=== PATIENT | male | born 1965 | race Caucasian/White ===

== ENCOUNTER 2025-03-13 04:27 | Emergency (ER) | payer OTHER, MEDICAID, SELFPAY ==
[2025-03-13 04:28] VITALS: BMI 28.5
[2025-03-13 04:47] VITALS: BP 108/71; PULSE 86; RESP 16; TEMP 36.9; O2SAT 98
--- NOTE | 2025-03-13 05:10 | PD.EDEAR ---
ED Ear RME/HPI General Chief complaint: Ear Stated complaint: LEFT EAR PAIN AND POPPING Time Seen by Provider: 03/13/25 04:56 Arrival date/time: 03/13/25 04:27 59M with history of afib, DM, and BPH presents to ED with several days of L ear pain and reduced hearing. Patient denies fevers/chills, URI symptoms, AMS, seizures, N/V, confusion, vision changes, jaw/dental pain, and fall/trauma. Limitations: no limitations Related Data Home Medications ?Medication ?Instructions ?Recorded ?Confirmed amitriptyline 50 mg tablet 50 mg PO QDAY 03/06/22 03/06/22 atorvastatin 80 mg tablet 80 mg PO QDAY 03/06/22 03/06/22 celecoxib 200 mg capsule 200 mg PO QDAY 03/06/22 03/06/22 esomeprazole magnesium 40 mg 40 mg PO QDAY 03/06/22 03/06/22 capsule,delayed release fluticasone fur. 100 mcg-umeclid See Rx Instructions .Route .COMPLEX 03/06/22 03/06/22 62.5 mcg-vilant 25 mcg inhalat.powder (Trelegy Ellipta) gabapentin 600 mg tablet 600 mg PO BID 03/06/22 03/06/22 lidocaine 5 % topical patch See Rx Instructions .Route .COMPLEX 03/06/22 03/06/22 metformin 500 mg tablet,extended 500 mg PO QDAY 03/06/22 03/06/22 release 24 hr methocarbamol 750 mg tablet 750 mg PO Q8H 03/06/22 03/06/22 oxycodone 10 mg tablet 10 mg PO TID 03/06/22 03/06/22 tamsulosin 0.4 mg capsule 0.4 mg PO QDAY 03/06/22 03/06/22 trazodone 150 mg tablet 150 mg PO QDAY 03/06/22 03/06/22 Previous Rx's ?Medication ?Instructions ?Recorded [id number]-[id number] 3.5 4 drp otic (ear) QID 10 days #10 mL 03/13/25 mg-10,000 unit/mL-1 % ear drops,susp Allergies Allergy/AdvReac Type Severity Reaction Status Date / Time ceftriaxone (From Rocephin) Allergy Intermediate Difficulty Verified 03/13/25 04:28 Breathing Penicillins Allergy Unknown Verified 03/13/25 04:28 Review of Systems Review of Systems Systems Reviewed: All systems reviewed, normal except as documented Constitutional Constitutional: Reports system reviewed and no additional complaints, except as documented, Denies fever(s) and Denies headache(s) ENT Ears, Nose, Mouth, and Throat: Reports as per HPI, Denies disequilibrium, Reports otalgia, Denies headache(s) and Reports hearing loss (reduced) Cardiovascular Cardiovascular: Reports system reviewed and no additional complaints, except as documented, Denies chest pain and Denies dyspnea Respiratory Respiratory: Reports system reviewed and no additional complaints, except as documented, Denies cough and Denies dyspnea Gastrointestinal Gastrointestinal: Reports system reviewed and no additional complaints, except as documented, Denies abdominal pain, Denies nausea and Denies vomiting Neurologic Neurologic: Reports system reviewed and no additional complaints, except as documented, Denies confusion, Denies disequilibrium and Denies headache(s) Psychiatric Psychiatric: Denies confusion Past Medical History Past Medical History CARDIAC: Positive Hypercholesterolemia and Hypertension; Negative Congestive Heart Failure RESPIRATORY: Positive Chronic Obstructive Pulmonary Disease (COPD) GENITOURINARY: Negative Renal Disease MUSCULOSKELETAL: Positive Degenerative Disk Disease ENDOCRINE: Negative Diabetes Mellitus Type 1 or Diabetes Mellitus Type 2 Surgical History SURGICAL: Positive Cardiac Surgery, Open Heart Surgery and Joint Replacement Social History SMOKING STATUS: Never smoker SUBSTANCE USE: does not use ED Exam General Limitations: Present no limitations General appearance: Present alert and in no apparent distress Head Head exam: Present atraumatic Eye Eye exam: Present normal appearance, PERRL and EOMI ENT ENT exam: Present mucous membranes moist Expanded ENT Exam External ear exam: Present external tenderness (L tragal) TM/Canal exam: Left TM: canal discharge and canal tenderness Neck Neck exam: Present normal inspection, full ROM and trachea midline Chest Chest inspection: Present normal inspection and symmetric chest wall rise Respiratory Respiratory exam: Present normal lung sounds bilaterally Cardiovascular Cardiovascular exam: Present regular rate, normal rhythm and normal heart sounds Abdominal Exam Abdominal exam: Present soft and normal bowel sounds Extremities Exam Extremities exam: Present normal inspection and full ROM Back Exam Back exam: Present normal inspection and full ROM Neurological Exam Neurological exam: Present alert, oriented X3 and CN II-XII intact Psychiatric Psychiatric exam: Present normal affect and normal mood Skin Skin exam: Present warm, dry, intact and normal color Course Quality Measures none Vital Signs Vital signs: Vital Signs Temperature 98.4 F 03/13/25 04:47 Pulse Rate 86 03/13/25 04:47 Respiratory Rate 16 03/13/25 04:47 Blood Pressure 108/71 03/13/25 04:47 Pulse Oximetry (%) 98 03/13/25 04:47 Oxygen Delivery Method Room Air 03/13/25 04:47 O2 at 98% on RA and WNLs Ear MDM Narrative MDM Narrative:: 59M with history of afib, DM, and BPH presents to ED with several days of L ear pain and reduced hearing. Patient denies fevers/chills, URI symptoms, AMS, seizures, N/V, confusion, vision changes, jaw/dental pain, and fall/trauma. Physical exam reveals L tragal tenderness, as well as canal discharge and tenderness. Patient is afebrile, calm, and alert. Speech normal. Gait normal. Likely OE. Patient data External records reviewed:: [facility] previous records Clinical information provided by:: patient Social determinants that could affect healthcare access:: none Patient has the following chronic illnesses:: afib, DM, and BPH How is presenting disease/condition affected by chronic disease/condition?: uneffected by Evaluation data The following diagnostics were reviewed and interpreted by me:: other (specify) (none) Lab and/or radiology exams considered but not ordered:: not ordered Interpretation Summary: n/a Medications / Prescriptions Medications or Prescriptions considered but not ordered:: not ordered Medication administrations:: n/a Consultations Consultation(s) initiated? (list below): No Diagnosis Ear Differential Diagnosis: otitis externa, otitis media, foreign body in ear, ruptured TM and cerumen impaction Most likely diagnosis given after review of the tests above:: OE Admission Indicated Admission indicated?: not indicated Admission Request Was there a request for admission?: No Disposition Plan Disposition Plan: Discharge Discharge Attestation Discharge Attestation: The patient and all family members were given an opportunity to ask questions and understood the discharge instructions. Discharge instructions specifically effects, indications for sooner follow up or return to the emergency department, and the expected course of current diagnosis. Patient condition: Stable Discharge Plan Plan Patient Disposition: HOME (Self Care) Discharge Disposition comment: Stable Prescriptions/Referrals Prescriptions/Med Rec: New erqfllqc-spynrpzdo-AP 3.5-10,000-1 mg/mL-unit/mL-% drops,suspension 4 drp otic (ear) QID 10 Days Qty: 10 0RF No Action celecoxib 200 mg capsule 200 mg PO QDAY Patient Comments: TAKE 1 CAPSULE BY MOUTH DAILY atorvastatin 80 mg tablet 80 mg PO QDAY Patient Comments: TAKE 1 TABLET BY MOUTH DAILY gabapentin 600 mg tablet 600 mg PO BID Patient Comments: TAKE 1 TABLET BY MOUTH TWICE DAILY amitriptyline 50 mg tablet 50 mg PO QDAY Patient Comments: TAKE 1 TABLET BY MOUTH DAILY methocarbamol 750 mg tablet 750 mg PO Q8H Patient Comments: GENERIC FOR ROBAXIN. TAKE 1 TABLET BY MOUTH EVERY 8 HOURS NEEDED FOR MUSCLE SPASMS tamsulosin 0.4 mg capsule 0.4 mg PO QDAY Patient Comments: TAKE 1 CAPSULE BY MOUTH DAILY trazodone 150 mg tablet 150 mg PO QDAY Patient Comments: TAKE 1 TABLET BY MOUTH DAILY esomeprazole magnesium 40 mg capsule,delayed release(DR/EC) 40 mg PO QDAY lidocaine 5 % adhesive patch,medicated See Rx Instructions .ROUTE .COMPLEX Patient Comments: APPLY 1 PATCH TOPICALLY TO THE SKIN EVERY DAY. MAY WEAR UP TO 12 HOURS Rx Instructions: APPLY 1 PATCH TOPICALLY TO THE SKIN EVERY DAY. MAY WEAR UP TO 12 HOURS metformin 500 mg tablet extended release 24 hr 500 mg PO QDAY Patient Comments: GENERIC FOR GLUCOPHAGE. TAKE 1 TABLET BY MOUTH DAILY oxycodone 10 mg tablet 10 mg PO TID Patient Comments: TAKE 1 TABLET BY MOUTH THREE TIMES DAILY FOR CHRONIC SEVERE PAIN Trelegy Ellipta 100-62.5-25 mcg blister with device See Rx Instructions .ROUTE .COMPLEX Patient Comments: INHALE 1 PUFF BY MOUTH AT THE SAME TIME EVERY DAY Rx Instructions: INHALE 1 PUFF BY MOUTH AT THE SAME TIME EVERY DAY Problem List Clinical Impression: Otitis externa Patient/Caregiver Discharge Instructions Education Materials: ED External Ear Infection (Adult) Additional Instructions: Please follow-up with PCP within 24-48 hours and return immediately if symptoms worsen. Keep drops in ear at least 1 min each time. Print Language: Slovenian Stand Alone Forms: Patient Portal Info Letter TASHI/BRYAN Supervising Physician TASHI/BRYAN Supervising Physician: Dr. Medley
== END 2025-03-13 05:17 | disposition home or self-care (01) ==
PROVIDERS: Emergency Provider Emergency Medicine
DX: H60.92 Unspecified otitis externa, left ear (principal)
CPT/HCPCS: 99283

== ENCOUNTER → 2025-04-07 | Outpatient (CLI) | payer OTHER, MEDICAID, SELFPAY ==
[2025-04-07 08:47] LABS: Basophils # (Auto) 0.0 Thou/mm3 (0.0-0.2); Basophils % (Auto) 1 % (0-2.5); Eosinophils # (Auto) 0.2 Thou/mm3 (0.0-0.5); Eosinophils % (Auto) 4 % (0-10); Hematocrit 39.6 % (41.0-53.0); Hemoglobin 13.7 g/dL (13.5-16.0); Immature Granulocytes Auto 0.02 Thou/mm3 (0.00-0.00); Lymphocytes # (Auto) 1.3 Thou/mm3 (1.0-4.8); Lymphocytes % (Auto) 28 % (10-50); Mean Corpuscular HGB Conc 34.6 g/dl (31.0-37.0); Mean Corpuscular Hemoglobin 28.7 pg (25.0-35.0); Mean Corpuscular Volume 83 fL (80-100); Monocytes # (Auto) 0.5 Thou/mm3 (0.0-0.8); Monocytes % (Auto) 11 % (0-12); Neutrophils # (Auto) 2.6 Thou/mm3 (1.8-7.7); Neutrophils % (Auto) 56 % (37-80); Nucleated Red Blood Cell # 0.00 Thou/mm3 (0.00-0.00); Nucleated Red Blood Cell % 0 /100 WBC (0); Platelet Count 161 Thou/mm3 (140-440); RDW Standard Deviation 39.7 fL (35.1-43.9); Red Blood Count 4.78 Miln/mm3 (4.50-5.90); White Blood Count 4.7 Thou/mm3 (3.8-10.6)
[2025-04-07 08:57] LABS: Glucose Estimated Average 117 mg/dL (80-131); Hemoglobin A1C 5.7 % Hgb (4.8-6.0)
[2025-04-07 09:10] LABS: Alanine Aminotransferase 18 U/L (10-49); Albumin, Serum 4.5 gm/dL (3.4-4.8); Albumin/Globulin Ratio 1.8 (1.2-2.2); Alkaline Phosphatase 97 U/L (46-116); Anion Gap 10 (7-16); Aspartate Amino Transferase 24 U/L (0-34); BUN/Creatinine Ratio 19 Ratio (12-20); Bilirubin,Total 0.9 mg/dL (0.3-1.2); Blood Urea Nitrogen 19 mg/dL (9-23); Calcium 9.3 mg/dL (8.3-10.6); Calcium (Corrected) 9.3 mg/dL (8.5-10.1); Carbon Dioxide 28.5 mMol/L (20.0-31.0); Cardiac Risk Estimate 2.5 RATIO (4.0-6.7); Chloride 102 mMol/L (98-107); Cholesterol 118 mg/dL (132-200); Creatinine (Component) 1.0 mg/dL (0.6-1.3); Globulin 2.5 gm/dL (2.3-3.5); Glucose 117 mg/dL (74-106); HDL Cholesterol 48 mg/dL (40-60); LDL Cholesterol,Calculated 58 mg/dL (0-130); Osmolality,Calculated 282 (275-295); Potassium 4.4 mMol/L (3.4-5.1); Sodium 140 mMol/L (136-145); Thyroid Stimulating Hormone 3.03 uIU/mL (0.55-4.78); Total Protein 7.0 gm/dL (5.7-8.2); Triglycerides 58 mg/dL (30-150); eGFR > 60 See Note
[2025-04-07 13:47] LABS: Collection Type, Urine Clean Catch; Squamous Epithelial Cell,Urine 0 /hpf (0-5)
[2025-04-07 14:53] LABS: Bilirubin,Urine Negative (Negative); Blood,Urine 1+ (Negative); Clarity,Urine Clear (Clear/Hazy); Color,Urine Lt-Yellow (Lt Yel-Yel); Culture Indicated,Urine Not Indicated; Glucose, Urine Negative (Negative); Ketones,Urine Negative (Negative); Leukocyte Esterase,Urine Negative (Negative); Nitrite,Urine Negative (Negative); PH,Urine 6.5 (5.0-7.0); Protein,Urine Negative (Neg - Trace); RBC,Urine 4 /hpf (0-3); Specific Gravity,Urine 1.012 (1.001-1.035); Urobilinogen,Urine Negative mg/dL (0.0-1.0); WBC,Urine 1 /hpf (0-5)
== END | disposition home or self-care (01) ==
LOC: COPL 06:44
PROVIDERS: PCP Nurse Practitioner Family; Referring Provider Nurse Practitioner Family; Visit Provider Nurse Practitioner Family
DX: Z00.00 Encounter for general adult medical examination without abnormal findings (principal); E78.2 Mixed hyperlipidemia; Z79.891 Long term (current) use of opiate analgesic
CPT/HCPCS: 36415; 80053; 80061; 81001; 83036; 84443; 85025

== ENCOUNTER 2025-04-11 06:10 | Emergency (ER) | payer MEDICAID, OTHER, SELFPAY ==
[2025-04-11 06:11] VITALS: BMI 29.0
[2025-04-11 06:18] VITALS: BP 113/71; PULSE 84; RESP 18; TEMP 36.8; O2SAT 97
--- NOTE | 2025-04-11 06:20 | EDNOTE_ITS ---
<Statement entered by Mali Freeman MD - 04/18/25 04:08> As co-signing physician, I was present and available for consult prn. I concur with the plan and care as documented by the midlevel provider. ED Extremity Problem RME/HPI General Chief complaint: Extremity Problem,Nontraumatic Stated complaint: RIGHT FOOT RED AND SWOLLEN Time Seen by Provider: 04/11/25 06:14 Arrival date/time: 04/11/25 06:10 60-year-old male presents emergency department today for complaints of right great toe pain or symptoms ongoing for the last 3 to 4 days patient reports no fever nausea vomiting Limitations: no limitations Related Data Home Medications ?Medication ?Instructions ?Recorded ?Confirmed amitriptyline 50 mg tablet 50 mg PO QDAY 03/06/2206/19 atorvastatin 80 mg tablet 80 mg PO QDAY 03/06/2203/06 celecoxib 200 mg capsule 200 mg PO QDAY 03/06/2206/19 esomeprazole magnesium 40 mg 40 mg PO QDAY 03/06/22 capsule,delayed release fluticasone fur. 100 mcg-umeclid See Rx Instructions . Route .COMPLEX 03/06/22 03/06/22 62.5 mcg-vilant 25 mcg inhalat.powder (Trelegy Ellipta) gabapentin 600 mg tablet 600 mg PO BID 03/06/2203/06 lidocaine 5 % topical patch See Rx Instructions .Route .COMPLEX 03/06/22 03/06/22 metformin 500 mg tablet,extended 500 mg PO QDAY 03/06/22 release 24 hr methocarbamol 750 mg tablet 750 mg PO Q8H 03/06/2206/19 oxycodone 10 mg tablet 10 mg PO TID 03/06/22 tamsulosin 0.4 mg capsule 0.4 mg PO QDAY 03/06/2206/19 trazodone 150 mg tablet 150 mg PO QDAY 03/06/2206/19 Previous Rx's ?Medication ?Instructions ?Recorded clindamycin HCl 300 mg capsule 300 mg PO TID 7 days #2 1 caps 04/11/25 hydrocodone 5 mg-acetaminophen 325 1 tab PO BID PRN pa in #8 tabs 04/11/25 mg tablet ibuprofen 800 mg tablet 800 mg PO TID PRN pain #30 t abs 04/11/25 Allergies Allergy/AdvReac Type Severity Reaction Status Date / Time ceftriaxone (From Rocephin) Allergy Intermediate Difficulty Verified 03/13/25 04:28 Breathing Penicillins Allergy Unknown Verified 03/13/25 04:28 Review of Systems Review of Systems Systems Reviewed: All systems reviewed, normal except as documented Constitutional Constitutional: Reports system reviewed and no additional complaints, except as documented, Denies fever(s) and Denies headache(s) Eyes Eyes: Reports system reviewed and no additional complaints, except as documented and Denies blurry vision ENT Ears, Nose, Mouth, and Throat: Reports system reviewed and no additional complaints, except as documented, Denies headache(s), Denies nasal congestion and Denies nasal discharge Cardiovascular Cardiovascular: Reports system reviewed and no additional complaints, except as documented, Denies chest pain and Denies dyspnea Respiratory Respiratory: Reports system reviewed and no additional complaints, except as documented, Denies chest congestion, Denies cough and Denies dyspnea Gastrointestinal Gastrointestinal: Reports system reviewed and no additional complaints, except as documented and Denies abdominal pain Integumentary/Breasts Skin/Breast: Reports system reviewed and no additional complaints, except as documented, Denies rash and Reports wounds (Ingrown toenail right great toe) Neurologic Neurologic: Reports system reviewed and no additional complaints, except as documented, Reports as per HPI and Denies headache(s) Past Medical History Past Medical History CARDIAC: Positive Hypercholesterolemia and Hypertension; Negative Congestive Heart Failure RESPIRATORY: Positive Chronic Obstructive Pulmonary Disease (COPD) GENITOURINARY: Negative Renal Disease MUSCULOSKELETAL: Positive Degenerative Disk Disease ENDOCRINE: Negative Diabetes Mellitus Type 1 or Diabetes Mellitus Type 2 Surgical History SURGICAL: Positive Cardiac Surgery, Open Heart Surgery and Joint Replacement Social History SMOKING STATUS: Never smoker SUBSTANCE USE: does not use ED Exam General Limitations: Present no limitations General appearance: Present alert and in no apparent distress Head Head exam: Present atraumatic Eye Eye exam: Present normal appearance, PERRL and EOMI ENT ENT exam: Present normal exam, normal oropharynx and mucous membranes moist Neck Neck exam: Present normal inspection, full ROM and trachea midline Chest Chest inspection: Present normal inspection and symmetric chest wall rise Respiratory Respiratory exam: Present normal lung sounds bilaterally Cardiovascular Cardiovascular exam: Present regular rate, normal rhythm and normal heart sounds Abdominal Exam Abdominal exam: Present soft and normal bowel sounds Extremities Exam Extremities exam: Present normal inspection and full ROM Back Exam Back exam: Present normal inspection and full ROM Neurological Exam Neurological exam: Present alert, oriented X3 and CN II-XII intact Psychiatric Psychiatric exam: Present normal affect and normal mood Skin Skin exam: Present warm, dry and other (Ingrown toenail right great toe) Course Quality Measures none Vital Signs Vital signs: Vital Signs Temperature 98.2 F 04/11/25 06:18 Pulse Rate 84 04/11/25 06:18 Respiratory Rate 18 04/11/25 06:18 Blood Pressure 113/71 04/11/25 06:18 Pulse Oximetry (%) 97 04/11/25 06:18 Oxygen Delivery Method Room Air 04/11/25 06:18 O2 saturation 97% room air within normal limits Extremity Problem MDM Narrative MDM Narrative:: 60-year-old male presents emergency department today for complaints of right great toe pain or symptoms ongoing for the last 3 to 4 days patient reports no fever nausea vomiting On exam patient appears to have infected ingrown toenail Patient be treated with course of antibiotics and pain medication I expect the patient in 2 days if symptoms do not improve significantly I would like him to return for nail removal Patient data External records reviewed:: [facility] previous records Clinical information provided by:: patient Social determinants that could affect healthcare access:: none Patient has the following chronic illnesses:: See history How is presenting disease/condition affected by chronic disease/condition?: uneffected by Evaluation data The following diagnostics were reviewed and interpreted by me:: other (specify) Lab and/or radiology exams considered but not ordered:: Considered not ordered Interpretation Summary: N/A Medications / Prescriptions Medications or Prescriptions considered but not ordered:: Given Medication administrations:: Given Consultations Consultation(s) initiated? (list below): No Diagnosis Extremity Problem Differential Diagnosis: cellulitis and deep vein thrombosis of lower extremity Most likely diagnosis given after review of the tests above:: Ingrown toenail right great toe Admission Indicated Admission indicated?: not indicated Admission Request Was there a request for admission?: No Disposition Plan Disposition Plan: Discharge Discharge Attestation Discharge Attestation: The patient and all family members were given an opportunity to ask questions and understood the discharge instructions. Discharge instructions specifically effects, indications for sooner follow up or return to the emergency department, and the expected course of current diagnosis. Patient condition: Stable Discharge Plan Plan Patient Disposition: HOME (Self Care) Discharge Disposition comment: Stable Prescriptions/Referrals Prescriptions/Med Rec: New clindamycin HCl 300 mg capsule 300 mg PO TID 7 Days Qty: 21 0RF ibuprofen 800 mg tablet 800 mg PO TID PRN (Reason: pain) Qty: 30 0RF hydrocodone-acetaminophen 5-325 mg tablet 1 tab PO BID MDD 10 PRN (Reason: pain) Qty: 8 0RF No Action celecoxib 200 mg capsule 200 mg PO QDAY Patient Comments: TAKE 1 CAPSULE BY MOUTH DAILY atorvastatin 80 mg tablet 80 mg PO QDAY Patient Comments: TAKE 1 TABLET BY MOUTH DAILY gabapentin 600 mg tablet 600 mg PO BID Patient Comments: TAKE 1 TABLET BY MOUTH TWICE DAILY amitriptyline 50 mg tablet 50 mg PO QDAY Patient Comments: TAKE 1 TABLET BY MOUTH DAILY methocarbamol 750 mg tablet 750 mg PO Q8H Patient Comments: GENERIC FOR ROBAXIN. TAKE 1 TABLET BY MOUTH EVERY 8 HOURS NEEDED FOR MUSCLE SPASMS tamsulosin 0.4 mg capsule 0.4 mg PO QDAY Patient Comments: TAKE 1 CAPSULE BY MOUTH DAILY trazodone 150 mg tablet 150 mg PO QDAY Patient Comments: TAKE 1 TABLET BY MOUTH DAILY esomeprazole magnesium 40 mg capsule,delayed release(DR/EC) 40 mg PO QDAY lidocaine 5 % adhesive patch,medicated See Rx Instructions .ROUTE .COMPLEX Patient Comments: APPLY 1 PATCH TOPICALLY TO THE SKIN EVERY DAY. MAY WEAR UP TO 12 HOURS Rx Instructions: APPLY 1 PATCH TOPICALLY TO THE SKIN EVERY DAY. MAY WEAR UP TO 12 HOURS metformin 500 mg tablet extended release 24 hr 500 mg PO QDAY Patient Comments: GENERIC FOR GLUCOPHAGE. TAKE 1 TABLET BY MOUTH DAILY oxycodone 10 mg tablet 10 mg PO TID Patient Comments: TAKE 1 TABLET BY MOUTH THREE TIMES DAILY FOR CHRONIC SEVERE PAIN Trelegy Ellipta 100-62.5-25 mcg blister with device See Rx Instructions .ROUTE .COMPLEX Patient Comments: INHALE 1 PUFF BY MOUTH AT THE SAME TIME EVERY DAY Rx Instructions: INHALE 1 PUFF BY MOUTH AT THE SAME TIME EVERY DAY Problem List Clinical Impression: Ingrowing right great toenail Patient/Caregiver Discharge Instructions Education Materials: ED Ingrown Toenail Not ... Additional Instructions: Please take antibiotics and pain medication as discussed for worsening symptoms you may need to return for nail removal. Print Language: Wallisian Stand Alone Forms: [employer] Info., Patient Portal Info Letter PA/DIRECTOR OF FOOD AND NUTRITION SERVICES Supervising Physician PA/DIRECTOR OF FOOD AND NUTRITION SERVICES Supervising Physician: Dr. Hernandez
== END 2025-04-11 06:31 | disposition home or self-care (01) ==
LOC: SERX 07:31
PROVIDERS: Emergency Provider Emergency Medicine
DX: L60.0 Ingrowing nail (principal)
CPT/HCPCS: 99283

== ENCOUNTER 2025-08-27 10:36 | Emergency (ER) | payer MEDICAID, SELFPAY ==
[2025-08-27 10:37] VITALS: BMI 31.8
--- NOTE | 2025-08-27 10:38 | PC.NURSE ---
PT YELLING AT THIS RN, STATING, I NEVER GO TO THIS HOSPITAL UNLESS I HAVE TO. MY EAR HURTS. PT ASKED TO WAIT IN LOBBY AND THAT HE WILL CALLED FOR RME SOON; PER PT, I CAN'T WAIT. PT ASKED IF HE CAN SIT DOWN; PT CONTINUED TO YELL, I CAN'T WAIT. PT IN NO RESPIRATORY DISTRESS, PT ABLE TO SPEAK IN FULL SENTENCES, AIRWAY INTACT. PT A&OX4, [facility] 15.
[2025-08-27 10:56] VITALS: BP 126/81; PULSE 91; RESP 20; TEMP 36.6; O2SAT 98
--- NOTE | 2025-08-27 11:26 | PD.EDEAR ---
ED Ear RME/HPI General Chief complaint: Ear Stated complaint: LEFT EAR PAIN RUBBER TO HEARING AID IS STUCK Time Seen by Provider: 08/27/25 10:41 Arrival date/time: 08/27/25 10:36 This is a 60-year-old male that comes into the emergency room with complaints of left ear pain. Patient has rubber hearing aid stuck in ear. Patient states that the paramedics tried to remove it and they were not able to. Patient complaining of bad ear pain. Related Data Home Medications ?Medication ?Instructions ?Recorded ?Confirmed amitriptyline 50 mg tablet 50 mg PO QDAY 03/06/22 03/06/22 atorvastatin 80 mg tablet 80 mg PO QDAY 03/06/22 03/06/22 celecoxib 200 mg capsule 200 mg PO QDAY 03/06/22 03/06/22 esomeprazole magnesium 40 mg 40 mg PO QDAY 03/06/22 03/06/22 capsule,delayed release fluticasone fur. 100 mcg-umeclid See Rx Instructions .Route .COMPLEX 03/06/22 03/06/22 62.5 mcg-vilant 25 mcg inhalat.powder (Trelegy Ellipta) gabapentin 600 mg tablet 600 mg PO BID 03/06/22 03/06/22 lidocaine 5 % topical patch See Rx Instructions .Route .COMPLEX 03/06/22 03/06/22 metformin 500 mg tablet,extended 500 mg PO QDAY 03/06/22 03/06/22 release 24 hr methocarbamol 750 mg tablet 750 mg PO Q8H 03/06/22 03/06/22 oxycodone 10 mg tablet 10 mg PO TID 03/06/22 03/06/22 tamsulosin 0.4 mg capsule 0.4 mg PO QDAY 03/06/22 03/06/22 trazodone 150 mg tablet 150 mg PO QDAY 03/06/22 03/06/22 Previous Rx's ?Medication ?Instructions ?Recorded hydrocodone 5 mg-acetaminophen 325 1 tab PO BID PRN pain #8 tabs 04/11/25 mg tablet ibuprofen 800 mg tablet 800 mg PO TID PRN pain #30 tabs 04/11/25 azithromycin 250 mg tablet See Rx Instructions PO .COMPLEX #6 08/27/25 tabs ibuprofen 800 mg tablet 800 mg PO Q6H PRN pain #10 tabs 08/27/25 Allergies Allergy/AdvReac Type Severity Reaction Status Date / Time ceftriaxone (From Rocephin) Allergy Intermediate Difficulty Verified 08/27/25 10:38 Breathing Penicillins Allergy Unknown Verified 08/27/25 10:38 Review of Systems Review of Systems Systems Reviewed: All systems reviewed, normal except as documented Past Medical History Past Medical History CARDIAC: Positive Hypercholesterolemia and Hypertension; Negative Congestive Heart Failure RESPIRATORY: Positive Chronic Obstructive Pulmonary Disease (COPD) GENITOURINARY: Negative Renal Disease MUSCULOSKELETAL: Positive Degenerative Disk Disease ENDOCRINE: Negative Diabetes Mellitus Type 1 or Diabetes Mellitus Type 2 Surgical History SURGICAL: Positive Cardiac Surgery, Open Heart Surgery and Joint Replacement Social History SMOKING STATUS: Never smoker SUBSTANCE USE: does not use ED Exam Narrative Physical exam: VITAL SIGNS: Reviewed. GENERAL APPEARANCE: Alert and interactive, follows commands, no acute distress HEAD AND FACE: Non-traumatic. ENT: PERRL, conjuctiva pink and clear, eyelid no trauma, Mucous membrane moist. Approximately 1 cm foreign body removed from ear ear, canal appears erythemic NECK: Supple, nontender, no nuchal rigidity. CHEST: No tenderness, no crepitus, no paradoxical movement, no retractions. LUNGS: breathing even and unlabored HEART: Regular rate, cap refill less than 2 seconds ABDOMEN: Soft, nondistended, no guarding, nontender, no rebound, no masses, NEUROLOGICAL: Gross motor function intact sensory function intact, Appropriate for age. MUSCULOSKELETAL: low back nontender, full range of motion EXTREMITIES: No redness no swelling no skin breakdown on bilateral foot and leg. Distal neurovascular status intact bilateral foot SKIN: Color pink, dry Course Quality Measures none Orders Category Date Time Status Acetaminophen Tab [Tylenol ES Tab] Med 08/27/25 11:22 Discontinued 1,000 mg PO X1 ONE Azithromycin Po [Zithromax PO] Med 08/27/25 11:26 Discontinued 500 mg PO X1 ONE Ibuprofen Tab [Motrin Tab] Med 08/27/25 11:22 Discontinued 800 mg PO X1 ONE Vital Signs Vital signs: Vital Signs Temperature 97.8 F 08/27/25 10:56 Pulse Rate 91 08/27/25 10:56 Respiratory Rate 20 08/27/25 10:56 Blood Pressure 126/81 08/27/25 10:56 Pulse Oximetry (%) 98 08/27/25 10:56 Oxygen Delivery Method Room Air 11/30/25 10:56 Ear MDM Narrative MDM Narrative:: I was able to remove foreign body out of left ear with alligator forceps. Patient tolerated well. Foreign body came out intact. I talked to patient at length about antibiotic therapy. Ear canal could possibly just be erythemic because of trauma because rubber piece of hearing aid was stuck in the ear. I explained to patient that he could also just follow-up with his doctor and have his ear checked. Patient would rather have antibiotics. I did discuss with patient about giving him a Rocephin shot and then sending him home. However it does appear that on his allergy list he is allergic to Rocephin so the only other option is Zithromax for now. Will treat patient with some ibuprofen, Tylenol and azithromycin. Patient told to make an appointment with primary doctor in 1 to 2 days. Come back to emergency room symptoms change or worsen. Dragon dictation: Although this document has been carefully reviewed, there may still be some phonetic and other typographical errors. These errors are purely grammatical due to imperfections in the software program and should not be construed in any way to compromise the substance of the patient's medical care during this visit. Patient data External records reviewed:: [facility] previous records Clinical information provided by:: patient Social determinants that could affect healthcare access:: none Patient has the following chronic illnesses:: none How is presenting disease/condition affected by chronic disease/condition?: no chronic disease Evaluation data The following diagnostics were reviewed and interpreted by me:: other (specify) (none) Lab and/or radiology exams considered but not ordered:: none Interpretation Summary: see note Medications / Prescriptions Medications or Prescriptions considered but not ordered:: none Medication administrations:: Medication Administration History Discontinued Medications Acetaminophen (Acetaminophen 500 Mg Tablet) 1,000 mg PO X1 ONE Stop: 08/27/25 11:23 Last Admin: 08/27/25 11:33 Dose: 1,000 mg Documented By: Azithromycin (Azithromycin 250 Mg Tablet) 500 mg PO X1 ONE Stop: 08/27/25 11:27 Last Admin: 08/27/25 11:32 Dose: 500 mg Documented By: Ibuprofen (Ibuprofen Tab 400 Mg Tablet) 800 mg PO X1 ONE Stop: 08/27/25 11:23 Last Admin: 08/27/25 11:32 Dose: 800 mg Documented By: see mar Consultations Consultation(s) initiated? (list below): No Diagnosis Most likely diagnosis given after review of the tests above:: foreighn body in ear removed Admission Indicated Admission indicated?: not indicated Admission Request Was there a request for admission?: No Disposition Plan Disposition Plan: Discharge Discharge Attestation Discharge Attestation: The patient and all family members were given an opportunity to ask questions and understood the discharge instructions. Discharge instructions specifically effects, indications for sooner follow up or return to the emergency department, and the expected course of current diagnosis. Patient condition: Stable Discharge Plan Plan Patient Disposition: HOME (Self Care) Patient condition on transfer: Stable Prescriptions/Referrals Prescriptions/Med Rec: New azithromycin 250 mg tablet See Rx Instructions .ROUTE .COMPLEX Qty: 6 0RF Rx Instructions: For 250 mg dose pack: take 500 mg today (day 1), then 250 mg for 4 days (days 2-5) ibuprofen 800 mg tablet 800 mg PO Q6H PRN (Reason: pain) Qty: 10 0RF No Action celecoxib 200 mg capsule 200 mg PO QDAY Patient Comments: TAKE 1 CAPSULE BY MOUTH DAILY atorvastatin 80 mg tablet 80 mg PO QDAY Patient Comments: TAKE 1 TABLET BY MOUTH DAILY gabapentin 600 mg tablet 600 mg PO BID Patient Comments: TAKE 1 TABLET BY MOUTH TWICE DAILY amitriptyline 50 mg tablet 50 mg PO QDAY Patient Comments: TAKE 1 TABLET BY MOUTH DAILY methocarbamol 750 mg tablet 750 mg PO Q8H Patient Comments: GENERIC FOR ROBAXIN. TAKE 1 TABLET BY MOUTH EVERY 8 HOURS NEEDED FOR MUSCLE SPASMS tamsulosin 0.4 mg capsule 0.4 mg PO QDAY Patient Comments: TAKE 1 CAPSULE BY MOUTH DAILY trazodone 150 mg tablet 150 mg PO QDAY Patient Comments: TAKE 1 TABLET BY MOUTH DAILY esomeprazole magnesium 40 mg capsule,delayed release(DR/EC) 40 mg PO QDAY lidocaine 5 % adhesive patch,medicated See Rx Instructions .ROUTE .COMPLEX Patient Comments: APPLY 1 PATCH TOPICALLY TO THE SKIN EVERY DAY. MAY WEAR UP TO 12 HOURS Rx Instructions: APPLY 1 PATCH TOPICALLY TO THE SKIN EVERY DAY. MAY WEAR UP TO 12 HOURS metformin 500 mg tablet extended release 24 hr 500 mg PO QDAY Patient Comments: GENERIC FOR GLUCOPHAGE. TAKE 1 TABLET BY MOUTH DAILY oxycodone 10 mg tablet 10 mg PO TID Patient Comments: TAKE 1 TABLET BY MOUTH THREE TIMES DAILY FOR CHRONIC SEVERE PAIN Trelegy Ellipta 100-62.5-25 mcg blister with device See Rx Instructions .ROUTE .COMPLEX Patient Comments: INHALE 1 PUFF BY MOUTH AT THE SAME TIME EVERY DAY Rx Instructions: INHALE 1 PUFF BY MOUTH AT THE SAME TIME EVERY DAY ibuprofen 800 mg tablet 800 mg PO TID PRN (Reason: pain) Qty: 30 0RF hydrocodone-acetaminophen 5-325 mg tablet 1 tab PO BID MDD 10 PRN (Reason: pain) Qty: 8 0RF Referrals: No Primary/Family,Physician [Primary Care Provider] - In 1 week Problem List Clinical Impression: Foreign body in ear, Otitis media Patient/Caregiver Discharge Instructions Discharge Activity: activity as tolerated Education Materials: ED EAR CANAL Foreign Body, ED Otitis Media Antibiotic ... Additional Instructions: Follow up with primary provider in 1-2 days. Come back to ED if symptoms change or worsen Print Language: Uzbek Stand Alone Forms: Lani Award Info., Patient Portal Info Letter PA/BRYAN Supervising Physician PA/[employer] Supervising Physician: marissa
[2025-08-27] MEDS: IBUPROFEN TAB 400 MG TABLET 800 MG PO (11:32)
[2025-08-27] MEDS: AZITHROMYCIN 250 MG TABLET 500 MG PO (11:32)
[2025-08-27] MEDS: ACETAMINOPHEN 500 MG TABLET 1000 MG PO (11:33)
== END 2025-08-27 11:57 | disposition home or self-care (01) ==
PROVIDERS: Emergency Provider Emergency Medicine
DX: T16.2XXA Foreign body in left ear, initial encounter (principal); H66.92 Otitis media, unspecified, left ear; W44.G1XA Audio device entering into or through a natural orifice, initial encounter
CPT/HCPCS: 69200; 99281; A9270